=== PATIENT | female | born 1965 ===

== ENCOUNTER 2019-01-03 14:30 | Inpatient (IN) | payer OTHER ==
[~2019-01-03] VITALS: Ht 172.7 cm; Wt 70.3 kg
[2019-01-03] MEDS ORDERED: NUVIGIL50 MG (15:44)
== END 2019-01-10 08:57 | disposition home or self-care (01) | DRG 743 ==
LOC: ADM 14:30 → O/R 01-09 06:05 → SURG-SUITE 01-09 06:05 → OB/GYN 01-09 10:30 → SURG-SUITE 01-09 12:14 → EDSTATUS 01-09 14:30 → CIR.AMB 01-09 14:30 → OB/GYN 01-09 14:30 → SURG-SUITE 01-10 08:57
PROVIDERS: ADMIT Obstetrics & Gynecology Gynecologic Oncology
PROC: 0UT74ZZ Resection of Bilateral Fallopian Tubes, Percutaneous Endoscopic Approach (ICD-10-PCS; 2019-01-09)
PROC: 0UT04ZZ Resection of Right Ovary, Percutaneous Endoscopic Approach (ICD-10-PCS; 2019-01-09)
PROC: 0UT94ZZ Resection of Uterus, Percutaneous Endoscopic Approach (ICD-10-PCS; principal; 2019-01-09 10:30)
DX: D25.1 Intramural leiomyoma of uterus (principal); N72 Inflammatory disease of cervix uteri; D27.0 Benign neoplasm of right ovary